=== PATIENT | female | born 1965 | race Two or more races ===

== ENCOUNTER 2021-04-28 07:14 | Outpatient (CLI) | payer OTHER ==
[2021-04-28 15:14] LABS: BASOPHILS % (AUTO) 0.5 %; EOSINOPHILS # (AUTO) 0.1 10^3/uL (0.0-0.7); HCT - HEMATOCRIT 41.7 % (37.0-47.0); HGB - HEMOGLOBIN 13.5 g/dL (12.0-16.0); LYMPHOCYTES % (AUTO) 16.8 %; MEAN CORPUSCULAR HEMOGLOBIN 28.6 pg (27.0-31.0); MEAN CORPUSCULAR HGB CONC 32.4 g/dL (32.0-36.0); MEAN CORPUSCULAR VOLUME 88.3 fL (81.0-99.0); MEAN PLATELET VOLUME 9.1 fL (7.9-10.8); MONOCYTES # (AUTO) 0.4 10^3/uL (0.0-1.0); MONOCYTES % (AUTO) 6.5 %; NEUTROPHILS # (AUTO) 4.5 10^3/uL (1.5-6.6); PLT - PLATELET COUNT 250 10^3/uL (130-450); RED BLOOD COUNT 4.72 10^6/uL (4.20-5.40); WHITE BLOOD COUNT 6.1 x10^3/uL (4.8-10.8)
[2021-04-28 15:21] LABS: ALBUMIN 3.8 g/dL (3.2-5.5); ALBUMIN/GLOBULIN RATIO 1.4 (1.0-2.2); ALKALINE PHOSPHATASE 37 IU/L (42-121); ALT ALANINE AMINOTRANSFERASE 15 IU/L (10-60); AST ASPARTATE AMINOTRANSFERASE 19 IU/L (10-42); BILIRUBIN,TOTAL 0.6 mg/dL (0.2-1.0); BUN - BLOOD UREA NITROGEN 16 mg/dL (6-20); CALCIUM 8.6 mg/dL (8.5-10.3); CARBON DIOXIDE - CO2 26 mmol/L (21-32); CHLORIDE 103 mmol/L (101-111); CHOL/HDL RATIO 2.9 (<4.4); CHOLESTEROL 179 mg/dL; CREATININE 0.8 mg/dL (0.4-1.0); GFR - MDRD 74 (>89); GLUCOSE 102 mg/dL (70-100); HDL CHOLESTEROL 62 mg/dL; LDL CHOLESTEROL,CALCULATED 104 mg/dL; LDL/HDL RATIO 1.7 (<4.4); POTASSIUM 3.9 mmol/L (3.5-5.0); SODIUM 137 mmol/L (135-145); TOTAL PROTEIN 6.5 g/dL (6.7-8.2); TRIGLYCERIDES 64 mg/dL; VLDL CHOLESTEROL 13 mg/dL
[2021-04-28 15:36] LABS: THYROID STIMULATING HORMONE 2.24 uIU/mL (0.34-5.60)
== END 2021-04-28 07:15 | disposition home or self-care (01) ==
LOC: LAB.S 07:14
PROVIDERS: ATTEND Registered Nurse
DX: Z13.228 Encounter for screening for other metabolic disorders (principal); Z13.220 Encounter for screening for lipoid disorders; Z13.29 Encounter for screening for other suspected endocrine disorder; Z13.0 Encounter for screening for diseases of the blood and blood-forming organs and certain disorders involving the immune mechanism
CPT/HCPCS: 36415; 80053; 80061; 83721; 84443; 85025

== ENCOUNTER 2022-03-10 12:27 | Outpatient (CLI) | payer OTHER ==
--- NOTE | 2022-03-10 16:23 | XRAY Report ---
PROCEDURE: Knee 2 View BILAT INDICATIONS: KNEE JOINT PAIN, 3 MONTHS, BILATERAL TECHNIQUE: 2 views of the each knee(s) were acquired. COMPARISON: None. FINDINGS: Bones: No fractures or dislocations. No suspicious bony lesions. Moderate osteoarthritis in right k nee and mild arthrosis in left knee. Soft tissues: No joint effusion. No suspicious soft tissue calcifications. IMPRESSION: Moderate osteoarthritis in right knee and mild osteoarthritis in left knee. Reviewed by: Mirian Pruett MD on 03/10/2022 4:22 PM PST Approved by: Mirian Pruett MD on 03/10/2022 4:22 PM PST Station ID: [id number]
== END 2022-03-10 12:28 | disposition home or self-care (01) ==
LOC: DI.S 12:27
PROVIDERS: ATTEND Registered Nurse
DX: M17.0 Bilateral primary osteoarthritis of knee (principal)

== ENCOUNTER 2022-03-13 07:21 | Outpatient (CLI) | payer OTHER ==
[2022-03-13 15:10] LABS: BASOPHILS % (AUTO) 0.7 %; EOSINOPHILS # (AUTO) 0.2 10^3/uL (0.0-0.7); EOSINOPHILS % (AUTO) 4.6 %; HCT - HEMATOCRIT 42.1 % (37.0-47.0); HGB - HEMOGLOBIN 13.5 g/dL (12.0-16.0); LYMPHOCYTES # (AUTO) 1.3 10^3/uL (1.5-3.5); LYMPHOCYTES % (AUTO) 28.2 %; MEAN CORPUSCULAR HEMOGLOBIN 28.7 pg (27.0-31.0); MEAN CORPUSCULAR HGB CONC 32.1 g/dL (32.0-36.0); MEAN CORPUSCULAR VOLUME 89.6 fL (81.0-99.0); MEAN PLATELET VOLUME 9.3 fL (7.9-10.8); MONOCYTES # (AUTO) 0.4 10^3/uL (0.0-1.0); MONOCYTES % (AUTO) 8.3 %; NEUTROPHILS # (AUTO) 2.7 10^3/uL (1.5-6.6); PLT - PLATELET COUNT 223 10^3/uL (130-450); RED CELL DISTRIBUTION WIDTH 12.5 % (12.0-15.0); WHITE BLOOD COUNT 4.6 x10^3/uL (4.8-10.8)
[2022-03-13 15:52] LABS: THYROID STIMULATING HORMONE 1.78 uIU/mL (0.34-5.60)
[2022-03-13 15:56] LABS: ALBUMIN 4.2 g/dL (3.2-5.5); ALBUMIN/GLOBULIN RATIO 1.5 (1.0-2.2); ALKALINE PHOSPHATASE 44 IU/L (42-121); ALT ALANINE AMINOTRANSFERASE 13 IU/L (10-60); AST ASPARTATE AMINOTRANSFERASE 17 IU/L (10-42); BILIRUBIN,TOTAL 0.8 mg/dL (0.2-1.0); BUN - BLOOD UREA NITROGEN 17 mg/dL (6-20); CALCIUM 9.1 mg/dL (8.5-10.3); CARBON DIOXIDE - CO2 28 mmol/L (21-32); CHLORIDE 101 mmol/L (101-111); CHOL/HDL RATIO 3.2 (<4.4); CHOLESTEROL 206 mg/dL; CREATININE 0.9 mg/dL (0.4-1.0); GFR - MDRD 65 (>89); GLUCOSE 95 mg/dL (70-100); HDL CHOLESTEROL 64 mg/dL; LDL CHOLESTEROL,CALCULATED 128 mg/dL; POTASSIUM 4.1 mmol/L (3.5-5.0); SODIUM 137 mmol/L (135-145); TRIGLYCERIDES 72 mg/dL; VLDL CHOLESTEROL 14 mg/dL
== END 2022-03-13 07:22 | disposition home or self-care (01) ==
LOC: LAB.S 07:21
PROVIDERS: ATTEND Registered Nurse
DX: Z79.899 Other long term (current) drug therapy (principal); Z13.220 Encounter for screening for lipoid disorders; Z13.29 Encounter for screening for other suspected endocrine disorder
CPT/HCPCS: 36415; 80053; 80061; 83721; 84443; 85025

== ENCOUNTER 2022-03-24 14:51 | Outpatient (CLI) | payer OTHER ==
--- NOTE | 2022-03-24 17:09 | XRAY Report ---
PROCEDURE: Knee 2 View BILAT INDICATIONS: BILAT KNEE PAIN, BILAT PA TUNNEL SUNRISE TO COMPLETE SERIERS TECHNIQUE: 2 views of the bilateral knee(s) were acquired. COMPARISON: None. FINDINGS: Bones: No fractures or dislocations. No suspicious bony lesions. Bilateral mild medial compartmenta l joint space narrowing noted greater on the right. Patellofemoral joint spaces are relatively preser shlomo Soft tissues: No joint effusion. No suspicious soft tissue calcifications. IMPRESSION: Mild medial compartment joint space narrowing greater on the right Reviewed by: Russ Bauman MD on 03/24/2022 4:07 PM AKST Approved by: Russ Bauman MD on 03/24/2022 4:07 PM AKST Station ID: [id number]
== END 2022-03-24 14:53 | disposition home or self-care (01) ==
LOC: DI.WOS 14:51
PROVIDERS: ATTEND Orthopaedic Surgery
DX: M25.561 Pain in right knee (principal); M25.562 Pain in left knee

== ENCOUNTER 2022-03-25 13:11 | Outpatient (CLI) | payer OTHER ==
--- NOTE | 2022-04-02 09:10 | Mammography Report ---
BILATERAL DIGITAL SCREENING MAMMOGRAM 3D/2D WITH EXAGGERATED CC: 03/25/2022 CLINICAL: Routine screening. No prior exams were available for comparison. Both breasts are heterogeneously dense, which may obscure small masses (category c / 51-75% glandular tissue). No significant masses, calcifications, or other findings are seen in either breast. IMPRESSION: NEGATIVE There is no mammographic evidence of malignancy. A 1 year screening mammogram is recommended. Based on the Tyrer Cuzick model (a risk assessment model) the patients lifetime risk is 10.7% and he r 10 year risk is 3.5%. According to the ACR, ACS, and NCCN guidelines, an annual breast MRI exam ashwin ng with mammogram is recommended if the patients lifetime risk is 20% or greater. This exam was interpreted at Station ID: [id number]. NOTE: For mammograms, a report in lay terms will be sent to the patient. Approximately 15% of breast malignancies will not be visualized mammographically. In the management of a palpable breast mass, a negative mammogram must not discourage biopsy of a clinically suspicious lesion. Electronically Signed By: Nilton can/anna:04/01/2022 11:36:39 letter sent: No_Letter ACR BI-RADS Category 1: Negative 3341F PARENCHYMAL PATTERN: (D) - The breast(s) demonstrate(s) heterogeneously dense fibroglandular leland oleary. BI-RADS CATEGORY: (1) - 1 RECOMMENDATION: (ANNUAL) - Recommend routine annual screening mammography. [id number] 1 year screening LATERALITY: (B)
== END 2022-03-25 13:12 | disposition home or self-care (01) ==
LOC: DI.S 13:11
PROVIDERS: ATTEND Registered Nurse
DX: Z12.31 Encounter for screening mammogram for malignant neoplasm of breast (principal)

== ENCOUNTER 2023-03-22 13:56 | Outpatient (CLI) | payer OTHER ==
--- NOTE | 2023-03-24 09:20 | Mammography Report ---
BILATERAL DIGITAL SCREENING MAMMOGRAM 3D/2D: 03/22/2023 Comparison is made to exams dated: 03/25/2022 mammogram - [facility], 03/05/2020 [facility] mogram, 02/13/2020 mammogram, and 10/21/2018 mammogram - [place]. Both breasts are heterogeneously dense, which may obscure small masses (category c / 51-75% glandular tissue). No significant masses, calcifications, or other findings are seen in either breast. There has been no significant interval change. IMPRESSION: NEGATIVE There is no mammographic evidence of malignancy. A 1 year screening mammogram is recommended. Based on the Tyrer Cuzick model (a risk assessment model) the patient's lifetime risk is 10.6% and he r 10 year risk is 3.7%. According to the ACR, ACS, and NCCN guidelines, an annual breast MRI exam ashwin ng with mammogram is recommended if the patient's lifetime risk is 20% or greater. This exam was interpreted at Station ID: [id number]. NOTE: For mammograms, a report in lay terms will be sent to the patient. Approximately 15% of breast malignancies will not be visualized mammographically. In the management of a palpable breast mass, a negative mammogram must not discourage biopsy of a clinically suspicious lesion. Electronically Signed By: Melva ellis/anna:03/23/2023 09:42:14 letter sent: No_Letter ACR BI-RADS Category 1: Negative 3341F PARENCHYMAL PATTERN: (D) - The breast(s) demonstrate(s) heterogeneously dense fibroglandular leland oleary. BI-RADS CATEGORY: (1) - 1 Mammogram [id number] 1 year screening LATERALITY: (B)
== END 2023-03-22 13:57 | disposition home or self-care (01) ==
LOC: DI.S 13:56
PROVIDERS: ATTEND Registered Nurse
DX: Z12.31 Encounter for screening mammogram for malignant neoplasm of breast (principal); R92.333 Mammographic heterogeneous density, bilateral breasts

== ENCOUNTER 2023-04-26 10:45 | Outpatient (CLI) | payer OTHER ==
--- NOTE | 2023-04-26 18:00 | XRAY Report ---
PROCEDURE: Knee 4 View BILAT INDICATIONS: BILAT KNEE PAIN TECHNIQUE: 4 views of the knee(s) were acquired. COMPARISON: None. FINDINGS: Bones: No fractures or dislocations. Mild to moderate bilateral tricompartmental osteoarthritis is seen more notably in medial femoral tibial compartment and patellofemoral compartment of right knee. No significant patellar subluxation. No suspicious bony lesions. Soft tissues: Small to moderate bilateral suprapatellar knee joint effusion. No suspicious soft tissu e calcifications or masses. IMPRESSION: No acute bony abnormality. Right worse than left bilateral tricompartmental osteoarthritis as above. Small to moderate bilateral suprapatellar joint effusion. Reviewed by: Car Faust MD on 04/26/2023 5:59 PM PDT Approved by: Car Faust MD on 04/26/2023 5:59 PM PDT Station ID: [id number]
== END 2023-04-26 23:59 | disposition home or self-care (01) ==
LOC: DI.WOS 10:45
PROVIDERS: ATTEND Orthopaedic Surgery
DX: M17.0 Bilateral primary osteoarthritis of knee (principal); M25.462 Effusion, left knee; M25.461 Effusion, right knee

== ENCOUNTER 2023-06-03 15:13 | Outpatient (CLI) | payer OTHER ==
--- NOTE | 2023-06-03 16:49 | Ultrasound Report ---
PROCEDURE: Soft Tissue Head or Neck INDICATIONS: NECK MASS TECHNIQUE: Real-time scanning was performed of the thyroid gland, with image documentation. COMPARISON: None FINDINGS: Right: Thyroid lobe measures 4.8 x 2.1 x 2.8 cm, and is heterogeneous in echotexture. Left: Thyroid lobe measures 5.2 x 1.7 x 1.7 cm, and is heterogeneous in echotexture. Isthmus: 0.5 cm thick. Multiple benign spongiform nodules are present throughout the thyroid. Nodule number: One Location: Right midpole Size: 3.2 x 1.9 x 2.6 cm. Composition: Solid (2 points). Echogenicity: Hypoechoic (2 points). Shape: wider than tall (0 points). Margins: Smooth (0 points). Echogenic foci: None (0 points). Total points: 4 ACR TI-RADS category: TI-RADS 4: Moderately suspicious. Nodule number: Two Location: Left superior pole Size: 1.1 x 0.8 x 1.3 cm cm. Composition: Solid (2 points). Echogenicity: Isoechoic (1 point). Shape: wider than tall (0 points). Margins: Smooth (0 points). Echogenic foci: None (0 points). Total points: 3 ACR TI-RADS category: TI-RADS 3: Mildly suspicious. IMPRESSION: TI-RADS 3 and 4 nodules. Nodule 1 meets size criteria for biopsy, per consensus guidelines. ACR TI-RADS definitions and recommendations: TI-RADS 1 (benign): 0 points. FNA not needed. TI-RADS 2 (not suspicious): 2 points. FNA not needed. TI-RADS 3 (mildly suspicious): 3 points. "FNA if 2.5 cm or larger, follow up if 1.5 cm or larger (at 1, 3, and 5 years). TI-RADS 4 (moderately suspicious): 4-6 points. "FNA if 1.5 cm or larger, follow up if 1 cm or larger (at 1, 2, 3, and 5 years). TI-RADS 5 (highly suspicious): 7 points or more. "FNA if 1 cm or larger, follow up if 0.5 cm or larger (every year for 5 years). Reviewed by: Issac Garcia MD on 06/03/2023 4:47 PM PDT Approved by: Issac Garcia MD on 06/03/2023 4:47 PM PDT Station ID: [id number]
== END 2023-06-03 15:14 | disposition home or self-care (01) ==
LOC: DI 15:13
PROVIDERS: ATTEND Registered Nurse
DX: E04.2 Nontoxic multinodular goiter (principal)

== ENCOUNTER 2023-07-23 09:39 | Outpatient (CLI) | payer OTHER ==
[2023-07-23] MEDS ORDERED: LIDOCAINE-MPF 1% 5 ML VIAL ONE (10:07)
[2023-07-23] MEDS: LIDOCAINE-MPF 1% 5 ML VIAL TD ONE (10:56)
--- NOTE | 2023-07-23 13:40 | Ultrasound Report ---
PROCEDURE: FNA Bx w/US Gdn 1st Les INDICATIONS: NECK MASS TECHNIQUE: The indications, alternatives, benefits, risks, and complications of the procedure were explained to the patient. Written informed consent was obtained and placed in the chart. The area of interest wa s examined sonographically and a site was chosen for ultrasound guided percutaneous sampling. The sk in was prepared and draped in the usual fashion, and anesthetized with 1% lidocaine infiltrated from the skin down to the lesion. Multiple passes were then performed, with contents emptied into an appr [facility] pathology specimen container. A bandage was applied to the area of access at completion of t he study. COMPARISON: Thyroid ultrasound 06/03/2023. FINDINGS: Location(s) of lesion(s) sampled: Right mid pole thyroid nodule measuring 3.2 cm. [place]: 25 gauge hypodermic needles x4. 22 gauge hypodermic needles x2. Medications: 1% lidocaine for local anaesthesia. Complications: None. Procedure was tolerated by the patient. IMPRESSION: Successful ultrasound-guided right mid thyroid nodule fine needle aspiration, with cytology results p ending. Reviewed by: Blue Meza MD on 07/23/2023 1:38 PM PDT Approved by: Blue Meza MD on 07/23/2023 1:38 PM PDT Station ID: [id number]
== END 2023-07-23 09:40 | disposition home or self-care (01) ==
LOC: DI 09:39
PROVIDERS: ATTEND Registered Nurse
DX: E04.1 Nontoxic single thyroid nodule (principal)
CPT/HCPCS: 10005